=== PATIENT | male | born 1995 | race Caucasian/White ===

== ENCOUNTER 2019-08-12 12:32 | Emergency (ER) | payer OTHER ==
[~2019-08-12] VITALS: Ht 180.3 cm; Wt 90.7 kg
[2019-08-12 12:39] VITALS: BP 123/58
== END 2019-08-12 13:36 | disposition home or self-care (01) ==
LOC: ER 12:32
DX: J11.1 Influenza due to unidentified influenza virus with other respiratory manifestations (principal); Z91.013 Allergy to seafood

== ENCOUNTER 2020-11-11 18:19 | Emergency (ER) | payer OTHER ==
[~2020-11-11] VITALS: Ht 180.3 cm; Wt 74.8 kg
[2020-11-11 19:04] LABS: ABSOLUTE NEUTROPHILS 0.8 thou/uL (1.4-8.2); EOSINOPHILS 2.3 % (0.0-3.0); HEMATOCRIT 48.6 % (42.0-52.0); HEMOGLOBIN 16.8 gm/dL (14.0-18.0); LYMPHOCYTES 54.5 % (24.0-44.0); MCH 31.3 pg (26.0-34.0); MCHC 34.6 g/dL (28.0-37.0); MCV 90.7 fL (80.0-100.0); MONOCYTES 13.7 % (1.0-8.0); POLYS 27.5 % (36.0-66.0); RBC 5.36 mil/uL (4.50-6.00); RDW 12.8 % (10.5-14.5); WBC 3.1 thou/uL (4.0-11.0)
[2020-11-11 19:06] LABS: ANION GAP 12 mmol/L (7-16); BUN 15 mg/dL (7-18); CALCIUM 9.4 mg/dL (8.5-10.1); CHLORIDE 101 mmol/L (98-107); CO2 27 mmol/L (21-32); GLUCOSE 106 mg/dL (74-106); POTASSIUM 3.5 mmol/L (3.5-5.1); SODIUM 140 mmol/L (136-145)
[2020-11-11 19:16] LABS: ALBUMIN 4.5 g/dL (3.4-5.0); SGOT 32 U/L (15-37); SGPT 50 U/L (16-63); TOTAL BILIRUBIN 0.8 mg/dL (0.2-1.0); TOTAL PROTEIN 8.6 g/dL (6.4-8.2); TROPONIN-I <0.06 ng/mL (<0.06)
[2020-11-11 19:33] LABS: LARGE PLATELETS FEW; PLATELET COUNT 502 thou/uL (150-400)
[2020-11-11] MEDS ORDERED: MOBIC7.5 MG PO (20:43)
[2020-11-11 20:50] VITALS: BP 119/84
--- NOTE | 2020-11-12 06:48 | EKG ---
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
== END 2020-11-11 20:51 | disposition home or self-care (01) ==
LOC: ER 18:19
PROVIDERS: Physician Assistant
DX: R07.89 Other chest pain (principal); R20.0 Anesthesia of skin; Z91.013 Allergy to seafood